=== PATIENT | female | born 1940 | race Caucasian/White ===

== ENCOUNTER → 2020-08-25 14:42 | Outpatient (BNVA) | payer MEDICARE, SELFPAY | PROVIDERS: PCP Nurse Practitioner Family; Referring Provider Nurse Practitioner Family; Visit Provider Internal Medicine Endocrinology, Diabetes & Metabolism | DX: Z13.89 Encounter for screening for other disorder (principal) | CPT/HCPCS: Q3014 ==

== ENCOUNTER → 2021-01-12 13:16 | Outpatient (BNVA) | payer MEDICARE, SELFPAY | PROVIDERS: PCP Nurse Practitioner Family; Visit Provider Internal Medicine Endocrinology, Diabetes & Metabolism | DX: Z13.89 Encounter for screening for other disorder (principal) | CPT/HCPCS: Q3014 ==

== ENCOUNTER 2021-07-08 21:00 | Emergency (ER) | payer MEDICARE, SELFPAY ==
[2021-07-08 21:47] LABS: COVID-19 Test Negative (Negative); IDNOW Serial# 9DD0AD1C
--- NOTE | 2021-07-09 00:19 | PC.NURSE ---
Organ donation called spoke with Jo Bustillo #[id number].
--- NOTE | 2021-07-09 06:35 | ED_ITS ---
HPI - CPR General Chief Complaint: Cardiac Arrest/CPR Stated Complaint: Cardiac Arrest Time Seen by Provider: 07/08/21 21:18 Source: family (Patient's daughter, Mansi) and EMS Mode of arrival: EMS Limitations: other (Cardiac arrest) History of Present Illness HPI narrative: 81-year-old female with history of diabetes mellitus, hypertension, hyperlipidemia, chronic kidney disease who presents emergency department in cardiac arrest. The information came from the patient's daughter and from EMS. The patient complained chest pain and a cough. The daughter states that the patient went to lie down and approximately 30 minutes later she was found on responsive by her granddaughter. CPR was started by family. When the paramedics arrived on the scene, the patient's 1st rhythm was asystole. The patient received epinephrine and was intubated with a Primitivo airway. According to the paramedics the patient was in ventricular fibrillation and got 2 shocks. The patient then went into pulseless ventricular tachycardia and was shocked 3 times. The patient received 8 doses of epinephrine and CPR and a prior to coming to the emergency department . She also received a dose of calcium IV. The paramedics state that they did not get any return of spontaneous circulation and that they attempted to resuscitate the patient for approximately 45 minutes prior to getting to the emergency department. On arrival to the emergency department the patient was pulseless, her initial rhythm was pulseless electrical activity with a heart rate of 20 on the monitor. The patient was given 1 round of epinephrine through the intraosseous and CPR was continued. After 3 minutes, the patient remained pulseless and had PEA with a rate of 20. Given the prolonged resuscitation attempt by the paramedics and no return of spontaneous circulation or pulse, the resuscitation was terminated at 2106 and the patient was pronounced . Patient's daughter was here in the emergency department I did inform her of the patient's . eligibility examiner was contacted and they declined jurisdiction of the case. The patient had a COVID- 19 test which was negative. Related Data Home Medications Medication Instructions Recorded Confirmed atorvastatin 80 mg tablet 80 mg PO DAILY 08/25/20 01/12/21 blood sugar diagnostic #10 ea 08/25/20 01/12/21 calcium carbonate 600 mg (1,500 0 tab PO 08/25/20 01/12/21 mg)-vitamin D3 200 unit tablet hydrochlorothiazide 12.5 mg tablet 12.5 mg PO DAILY 08/25/20 01/12/21 lisinopril 20 mg tablet 20 mg PO DAILY 08/25/20 01/12/21 multivitamin-ferrous 0 tab PO 08/25/20 01/12/21 fumarate-folic acid 18 mg-400 mcg tablet venlafaxine 37.5 mg tablet 37.5 mg PO ONCE tab 01/12/21 01/12/21 Previous Rx's Medication Instructions Recorded blood sugar diagnostic (FreeStyle 1 strip MISCELLANEOUS TID 90 Days 01/12/21 Lite Strips) #300 strip insulin aspart U-100 100 unit/mL See Rx Instructions SUBCUT TID 30 01/12/21 (3 mL) subcutaneous pen Days #15 ml insulin glargine U-300 conc 300 25 unit SUBCUT BEDTIME 30 Days 01/12/21 unit/mL (1.5 mL) subcutaneous pen #4.5 ml linagliptin 5 mg tablet (Tradjenta) 5 mg PO DAILY 30 Days #30 tab 01/12/21 pen needle, diabetic 32 gauge x 1 ea SUBCUT QID 30 Days #150 ea 01/21/21 5/32 (BD Ultra-Fine Huyen Pen Needle) FreeStyle Lancets 28 gauge 28 gauge TOPICAL QID 90 Days #300 03/17/21 (lancets) ea NS Allergies Allergy/AdvReac Type Severity Reaction Status Date / Time penicillin V Allergy Unknown Unverified 05/21/20 00:00 Penicillins Allergy Unknown HIVES Unverified 06/19/20 17:23 Review of Systems Review of Systems: Yes unobtainable due to endotracheal tube PMFSH Past Medical History [facility] Narrative: Social history: The patient lives with her family. She does not drink alcohol, use tobacco or drugs. 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 Mother Diabetes mellitus Social History Social History Advance Directives: No Advance Directives Information Provided: No Physical Exam Const: Other: The patient is intubated with a Primitivo tube, there are no spontaneous respirations. There are no spontaneous movements. HENMT: Other: Normal cephalic, atraumatic. Eyes: Other: Pupils are fixed and dilated. Neck: Other: No evidence of trauma Chest: Other: No evidence of trauma Resp: Other: No spontaneous respirations with bagging through the Primitivo tube, there is symmetric breath sounds bilaterally Cardio: Other: No heart tones on auscultation, no palpable pulse GI: Other: Abdomen is distended Neuro: Other: No spontaneous movement Course Course Course Narrative: 81-year-old female who presents emergency department in cardiac arrest. The patient was complaining of chest pain and a cough prior to her arrest. The arrest was unwitnessed and the patient was found by her g randdaughter unresponsive with the last well-known time 30 minutes prior to discovery. CPR was started by family. When the paramedics arrived on the scene the patient was asystolic. Paramedics attempted to resuscitate the patient for approximately 45 minutes prior to getting to the emergency department. On arrival to the emergency department the patient was in PEA with a rate of 20 and no palpable pulses. She was given 1 dose of epinephrine IV CPR was continued and there was no response therefore the patient was pronounced at 9:06 p.m.: Patient's family was in the emergency department and they were informed of the patient's . eligibility examiner declined case. eligibility examiner case number is [id number] MDM - Cardiac Arrest/CPR Lab Data Labs: Lab Results 07/08/21 Range/Units 21:28 COVID-19 ([facility]) Negative (Negative) COVID-19 Clin Com See Note Discharge Plan Discharge Clinical Impression: Asystole, Cardiac arrest, Patient Disposition: Discharge Date/Time: 07/09/21 02:27 Date/Time: 07/08/21 21:06
[2021-07-09 09:43] LABS: Glucose, Whole Blood 215 mg/dL (60-115)
== END 2021-07-09 02:27 | disposition expired ==
PROVIDERS: Emergency Provider Emergency Medicine Emergency Medical Services
DX: I46.9 Cardiac arrest, cause unspecified (principal); I12.9 Hypertensive chronic kidney disease with stage 1 through stage 4 chronic kidney disease, or unspecified chronic kidney disease; E11.22 Type 2 diabetes mellitus with diabetic chronic kidney disease; N18.4 Chronic kidney disease, stage 4 (severe); Z79.4 Long term (current) use of insulin; Z20.822 Contact with and (suspected) exposure to COVID-19
CPT/HCPCS: 36415; 82947; 87635; 96374; 99282; 99285